=== PATIENT | male | born 1965 | race African-American/Black ===

== ENCOUNTER 2023-06-09 12:06 | Inpatient (IN) | payer OTHER ==
[2023-06-09 12:54] VITALS: BMI 27.9
[2023-06-09] MEDS ORDERED: hydrOXYzine PAMOATE 25 MG CAPSULE (FP) PO PRN (14:01)
[2023-06-09] MEDS ORDERED: NALOXONE HCL (KLOXXADO) 8 MG SPRAY NS PRN (14:01)
[2023-06-09] MEDS ORDERED: MAGNESIUM HYDROX 2400MG/30ML ORAL SUSPENSION 30 ML CUP PO PRN (14:01)
[2023-06-09] MEDS ORDERED: guaiFENesin 600 MG TABLET.ER (FP) PO PRN (14:01)
[2023-06-09] MEDS ORDERED: NALOXONE HCL 0.4 MG/ML VIAL IM PRN (14:01)
[2023-06-09] MEDS ORDERED: BENZONATATE 200 MG CAPSULE PO PRN (14:01)
[2023-06-09] MEDS ORDERED: P-EPHED 60MG/TRIPROLIDI 2.5MG TABLET PO PRN (14:01)
[2023-06-09] MEDS ORDERED: BENZOCAINE/MENTHOL (CHLORASEPTIC ) LOZENGE MM PRN (14:01)
[2023-06-09] MEDS ORDERED: POLYETHYLENE GLYCOL (HEALTHYLAX) 3350 17 GM PACKET PO PRN (14:01)
[2023-06-09] MEDS ORDERED: NICOTINE POLACRILEX 2 MG GUM BUC PRN (14:01)
[2023-06-09] MEDS ORDERED: LOPERAMIDE HCL 2 MG CAPSULE PO PRN (14:01)
[2023-06-09] MEDS: MELATONIN 5 MG TABLETS PO SCH (21:56)
[2023-06-09] MEDS: THIAMINE HCL 100 MG TABLET (FP) PO SCH (21:56)
[2023-06-10 02:40] LABS: PH,URINE 5.5 (5.0-8.0); URINE APPEARANCE CLEAR; URINE BILIRUBIN NEGATIVE (NEGATIVE); URINE COLOR YELLOW; URINE GLUCOSE (UA) NEGATIVE (NEGATIVE); URINE KETONE NEGATIVE (NEGATIVE); URINE LEUK ESTERASE NEGATIVE (NEGATIVE); URINE NITRITE NEGATIVE (NEGATIVE); URINE PROTEIN NEGATIVE (NEGATIVE); URINE UROBILINOGEN 0.2 mg/dL (0.2-1.0)
[2023-06-10] MEDS ORDERED: TUBERCULIN PPD 5 TU/0.1ML VIAL ID ONE (07:45)
[2023-06-10] MEDS ORDERED: TUBERCULIN PPD 5 TU/0.1ML SYRINGE (IN PATIENT USE ONLY) ID ONE (08:30)
[2023-06-10] MEDS ORDERED: methaDONE HCL 10 MG TABLET PO SCH (10:00)
[2023-06-10] MEDS ORDERED: methaDONE 40 MG, methaDONE 10 MG PO ONE (10:00)
[2023-06-10] MEDS: PRENATAL VITAMINS W/ FOLIC ACID TABLET (FP) PO SCH (10:09)
[2023-06-10 11:15] LABS: HEMOGLOBIN 12.3 GM/dL (11.7-16.9); MCH 29.1 pg (25.7-33.7); MCHC 33.2 g/dl (32.0-35.9); MEAN CELL VOLUME 87.7 fl (80-96); MEAN PLT VOLUME 8.2 fl (7.5-11.1); PLATELET COUNT 227 10^3/uL (134-434); RBC 4.22 M/mm3 (4.00-5.60); RDW 14.9 % (11.9-15.9); WHITE BLOOD COUNT 4.4 K/mm3 (4.0-10.0)
[2023-06-10 11:41] LABS: SYPHILIS W/ RPR CONF NON-REACTIVE (NONREACTIVE)
[2023-06-10 11:59] LABS: ALBUMIN 3.2 g/dl (3.4-5.0); BLOOD UREA NITROGEN 11.6 mg/dL (7-18); CALCIUM 8.5 mg/dL (8.5-10.1)
[2023-06-10 12:01] LABS: CREATININE 0.9 mg/dL (0.55-1.3)
[2023-06-10 12:04] LABS: BILIRUBIN,TOTAL 0.2 mg/dL (0.2-1)
[2023-06-10] MEDS: THIAMINE HCL 100 MG TABLET (FP) PO SCH (21:08)
[2023-06-10] MEDS: MELATONIN 5 MG TABLETS PO SCH (21:08)
[2023-06-11] MEDS: IBUPROFEN 400 MG TABLET (FP) PO PRN (00:31)
[2023-06-11] MEDS ORDERED: methaDONE HCL 10 MG TABLET PO SCH (06:00)
[2023-06-11] MEDS: methaDONE 40 MG, methaDONE 10 MG PO SCH (06:28)
[2023-06-11] MEDS: PRENATAL VITAMINS W/ FOLIC ACID TABLET (FP) PO SCH (09:37)
[2023-06-11] MEDS: IBUPROFEN 600 MG TABLET (FP) PO PRN ×2 (11:30→22:06)
[2023-06-11] MEDS: THIAMINE HCL 100 MG TABLET (FP) PO SCH (21:13)
[2023-06-11] MEDS: MELATONIN 5 MG TABLETS PO SCH (21:13)
[2023-06-12] MEDS: methaDONE 40 MG, methaDONE 10 MG PO SCH (06:21)
[2023-06-12] MEDS ORDERED: cloNIDine HCL 0.1 MG TABLET PO ONE (09:19)
[2023-06-12] MEDS: PRENATAL VITAMINS W/ FOLIC ACID TABLET (FP) PO SCH (09:59)
[2023-06-12] MEDS: ASPIRIN 81 MG CHEWABLE TABLETS PO SCH (10:00)
[2023-06-12] MEDS: MELATONIN 5 MG TABLETS PO SCH (21:15)
[2023-06-12] MEDS: THIAMINE HCL 100 MG TABLET (FP) PO SCH (21:15)
[2023-06-12] MEDS: ACETAMINOPHEN 325 MG TABLET (FP) PO PRN (22:07)
[2023-06-13] MEDS: methaDONE 40 MG, methaDONE 10 MG PO SCH (06:12)
[2023-06-13] MEDS: PRENATAL VITAMINS W/ FOLIC ACID TABLET (FP) PO SCH (09:40)
[2023-06-13] MEDS: ASPIRIN 81 MG CHEWABLE TABLETS PO SCH (09:40)
[2023-06-13] MEDS ORDERED: methaDONE HCL 10 MG TABLET PO ONE (13:00)
[2023-06-13] MEDS ORDERED: cloNIDine HCL 0.1 MG TABLET PO ONE (13:00)
[2023-06-13] MEDS: METHYL SALICYLATE/MENTHOL OINT 30 GM TUBE TP PRN (21:25)
[2023-06-13] MEDS: THIAMINE HCL 100 MG TABLET (FP) PO SCH (21:25)
[2023-06-13] MEDS: MELATONIN 5 MG TABLETS PO SCH (21:25)
[2023-06-14] MEDS ORDERED: methaDONE HCL 40 MG DISPERSABLE TABLET PO SCH (06:00)
[2023-06-14] MEDS ORDERED: methaDONE 40 MG, methaDONE 20 MG PO ONE (06:00)
[2023-06-14] MEDS: ASPIRIN 81 MG CHEWABLE TABLETS PO SCH (09:54)
[2023-06-14] MEDS: PRENATAL VITAMINS W/ FOLIC ACID TABLET (FP) PO SCH (09:54)
[2023-06-14] MEDS: AMMONIUM LACTATE 12% LOTION 225 GM BOTTLE TP PRN (11:51)
[2023-06-14] MEDS: COLLOIDAL OATMEAL 1 BAR EACH TP PRN (11:51)
[2023-06-14] MEDS: THIAMINE HCL 100 MG TABLET (FP) PO SCH (21:05)
[2023-06-14] MEDS ORDERED: SUVOREXANT 10 MG TABLET PO PRN (22:00)
[2023-06-15] MEDS ORDERED: methaDONE HCL 10 MG TABLET PO SCH (06:00)
[2023-06-15] MEDS: methaDONE 40 MG, methaDONE 30 MG PO SCH (06:07)
[2023-06-15] MEDS: PRENATAL VITAMINS W/ FOLIC ACID TABLET (FP) PO SCH (09:30)
[2023-06-15] MEDS: ASPIRIN 81 MG CHEWABLE TABLETS PO SCH (09:30)
[2023-06-15] MEDS: METHYL SALICYLATE/MENTHOL OINT 30 GM TUBE TP PRN (09:31)
[2023-06-15] MEDS: AMMONIUM LACTATE 12% LOTION 225 GM BOTTLE TP PRN (09:31)
[2023-06-15] MEDS: THIAMINE HCL 100 MG TABLET (FP) PO SCH (21:03)
[2023-06-16] MEDS: IBUPROFEN 600 MG TABLET (FP) PO PRN (00:39)
[2023-06-16] MEDS: hydrOXYzine PAMOATE 50 MG CAPSULE (FP) PO PRN (02:12)
[2023-06-16] MEDS: methaDONE 40 MG, methaDONE 30 MG PO SCH (06:27)
[2023-06-16] MEDS: PRENATAL VITAMINS W/ FOLIC ACID TABLET (FP) PO SCH (10:04)
[2023-06-16] MEDS: ASPIRIN 81 MG CHEWABLE TABLETS PO SCH (10:04)
[2023-06-16] MEDS: MAG HYDROX/AL HYDROX/SIMETH 30 ML UNIT-DOSE CUP PO PRN (16:49)
[2023-06-16] MEDS: THIAMINE HCL 100 MG TABLET (FP) PO SCH (21:35)
[2023-06-16] MEDS: SUVOREXANT 15 MG TABLET PO PRN (21:36)
[2023-06-17] MEDS: MAG HYDROX/AL HYDROX/SIMETH 30 ML UNIT-DOSE CUP PO PRN (00:15)
[2023-06-17] MEDS: methaDONE 40 MG, methaDONE 30 MG PO SCH (06:45)
[2023-06-17] MEDS: ASPIRIN 81 MG CHEWABLE TABLETS PO SCH (09:28)
[2023-06-17] MEDS: PRENATAL VITAMINS W/ FOLIC ACID TABLET (FP) PO SCH (09:29)
[2023-06-17] MEDS: METHYL SALICYLATE/MENTHOL OINT 30 GM TUBE TP PRN (12:49)
[2023-06-17] MEDS: IBUPROFEN 600 MG TABLET (FP) PO PRN (12:49)
[2023-06-17] MEDS: SUVOREXANT 15 MG TABLET PO PRN (21:25)
[2023-06-17] MEDS: THIAMINE HCL 100 MG TABLET (FP) PO SCH (21:25)
[2023-06-18] MEDS: ACETAMINOPHEN 325 MG TABLET (FP) PO PRN (03:21)
[2023-06-18] MEDS: methaDONE 40 MG, methaDONE 30 MG PO SCH (06:12)
[2023-06-18] MEDS: ASPIRIN 81 MG CHEWABLE TABLETS PO SCH (09:45)
[2023-06-18] MEDS: PRENATAL VITAMINS W/ FOLIC ACID TABLET (FP) PO SCH (09:45)
[2023-06-18] MEDS: COLLOIDAL OATMEAL 1 BAR EACH TP PRN (16:43)
[2023-06-18] MEDS: THIAMINE HCL 100 MG TABLET (FP) PO SCH (21:09)
[2023-06-18] MEDS: SUVOREXANT 15 MG TABLET PO PRN (21:11)
[2023-06-19] MEDS: IBUPROFEN 400 MG TABLET (FP) PO PRN (02:20)
[2023-06-19] MEDS: methaDONE 40 MG, methaDONE 30 MG PO SCH (05:59)
[2023-06-19] MEDS: ASPIRIN 81 MG CHEWABLE TABLETS PO SCH (09:35)
[2023-06-19] MEDS: PRENATAL VITAMINS W/ FOLIC ACID TABLET (FP) PO SCH (09:35)
[2023-06-19] MEDS: THIAMINE HCL 100 MG TABLET (FP) PO SCH (21:33)
[2023-06-19] MEDS: SUVOREXANT 15 MG TABLET PO PRN (21:35)
[2023-06-20] MEDS: methaDONE 40 MG, methaDONE 30 MG PO SCH (06:03)
[2023-06-20] MEDS: PRENATAL VITAMINS W/ FOLIC ACID TABLET (FP) PO SCH (10:03)
[2023-06-20] MEDS: ASPIRIN 81 MG CHEWABLE TABLETS PO SCH (10:03)
[2023-06-20] MEDS: IBUPROFEN 600 MG TABLET (FP) PO PRN (14:01)
[2023-06-20] MEDS: THIAMINE HCL 100 MG TABLET (FP) PO SCH (21:27)
[2023-06-20] MEDS: MIRTAZAPINE 15 MG TABLET (FP) PO SCH (21:28)
[2023-06-20] MEDS: SUVOREXANT 15 MG TABLET PO PRN (21:29)
[2023-06-21] MEDS: methaDONE 40 MG, methaDONE 30 MG PO SCH (06:07)
[2023-06-21] MEDS: ASPIRIN 81 MG CHEWABLE TABLETS PO SCH (09:43)
[2023-06-21] MEDS: PRENATAL VITAMINS W/ FOLIC ACID TABLET (FP) PO SCH (09:43)
[2023-06-21] MEDS: THIAMINE HCL 100 MG TABLET (FP) PO SCH (21:23)
[2023-06-21] MEDS: MIRTAZAPINE 15 MG TABLET (FP) PO SCH (21:23)
[2023-06-21] MEDS: SUVOREXANT 15 MG TABLET PO PRN (21:24)
[2023-06-22] MEDS: methaDONE 40 MG, methaDONE 30 MG PO SCH (06:11)
[2023-06-22] MEDS: PRENATAL VITAMINS W/ FOLIC ACID TABLET (FP) PO SCH (09:51)
[2023-06-22] MEDS: ASPIRIN 81 MG CHEWABLE TABLETS PO SCH (09:51)
[2023-06-22] MEDS: MIRTAZAPINE 15 MG TABLET (FP) PO SCH (22:33)
[2023-06-22] MEDS: THIAMINE HCL 100 MG TABLET (FP) PO SCH (22:33)
[2023-06-22] MEDS: SUVOREXANT 15 MG TABLET PO PRN (22:39)
[2023-06-23] MEDS: methaDONE 40 MG, methaDONE 30 MG PO SCH (06:03)
[2023-06-23] MEDS: PRENATAL VITAMINS W/ FOLIC ACID TABLET (FP) PO SCH (09:57)
[2023-06-23] MEDS: ASPIRIN 81 MG CHEWABLE TABLETS PO SCH (09:57)
[2023-06-23] MEDS: THIAMINE HCL 100 MG TABLET (FP) PO SCH (21:12)
[2023-06-23] MEDS: MIRTAZAPINE 15 MG TABLET (FP) PO SCH (21:12)
[2023-06-23] MEDS: SUVOREXANT 15 MG TABLET PO PRN (21:12)
[2023-06-23] MEDS: hydrOXYzine PAMOATE 50 MG CAPSULE (FP) PO PRN (21:12)
[2023-06-24] MEDS: methaDONE 40 MG, methaDONE 30 MG PO SCH (06:11)
[2023-06-24] MEDS: ASPIRIN 81 MG CHEWABLE TABLETS PO SCH (09:31)
[2023-06-24] MEDS: PRENATAL VITAMINS W/ FOLIC ACID TABLET (FP) PO SCH (09:31)
[2023-06-24] MEDS ORDERED: ONDANSETRON *ODT* 4 MG TABLET SL PRN (10:02)
[2023-06-24] MEDS ORDERED: methaDONE HCL 10 MG TABLET PO ONE (10:45)
[2023-06-24] MEDS: THIAMINE HCL 100 MG TABLET (FP) PO SCH (21:21)
[2023-06-24] MEDS: MIRTAZAPINE 15 MG TABLET (FP) PO SCH (21:21)
[2023-06-24] MEDS: SUVOREXANT 15 MG TABLET PO PRN (21:22)
[2023-06-25] MEDS: methaDONE HCL 40 MG DISPERSABLE TABLET PO SCH (06:11)
[2023-06-25] MEDS: PRENATAL VITAMINS W/ FOLIC ACID TABLET (FP) PO SCH (09:45)
[2023-06-25] MEDS: ASPIRIN 81 MG CHEWABLE TABLETS PO SCH (09:45)
[2023-06-25] MEDS ORDERED: LIDOCAINE 5% TOPICAL PATCH TP PRN (12:02)
[2023-06-25] MEDS: LIDOCAINE PATCH REMOVAL MC SCH (21:06)
[2023-06-25] MEDS: hydrOXYzine PAMOATE 50 MG CAPSULE (FP) PO PRN (21:06)
[2023-06-25] MEDS: THIAMINE HCL 100 MG TABLET (FP) PO SCH (21:06)
[2023-06-25] MEDS: MIRTAZAPINE 15 MG TABLET (FP) PO SCH (21:06)
[2023-06-26] MEDS: methaDONE HCL 40 MG DISPERSABLE TABLET PO SCH (06:09)
[2023-06-26] MEDS: PRENATAL VITAMINS W/ FOLIC ACID TABLET (FP) PO SCH (10:10)
[2023-06-26] MEDS: ASPIRIN 81 MG CHEWABLE TABLETS PO SCH (10:10)
[2023-06-26] MEDS: THIAMINE HCL 100 MG TABLET (FP) PO SCH (21:10)
[2023-06-26] MEDS: hydrOXYzine PAMOATE 50 MG CAPSULE (FP) PO PRN (21:10)
[2023-06-26] MEDS: MIRTAZAPINE 15 MG TABLET (FP) PO SCH (21:10)
[2023-06-26] MEDS: LIDOCAINE PATCH REMOVAL MC SCH (22:05)
[2023-06-27] MEDS: methaDONE HCL 40 MG DISPERSABLE TABLET PO SCH (06:06)
[2023-06-27 07:19] VITALS: BP 143/92; PULSE 83; RESP 17; TEMP 96.9
[2023-06-27] MEDS: PRENATAL VITAMINS W/ FOLIC ACID TABLET (FP) PO SCH (09:22)
[2023-06-27] MEDS: ASPIRIN 81 MG CHEWABLE TABLETS PO SCH (09:22)
== END 2023-06-27 09:50 | disposition home or self-care (01) | DRG 772 ==
LOC: YASAS 12:06 → Y3E 16:21
PROVIDERS: ADMIT Allergy & Immunology; ATTEND Psychiatry & Neurology Pain Medicine
PROC: HZ42ZZZ Group Counseling for Substance Abuse Treatment, Cognitive-Behavioral (ICD-10-PCS; principal; 2023-06-09)
DX: F11.20 Opioid dependence, uncomplicated (principal); F10.10 Alcohol abuse, uncomplicated; F17.210 Nicotine dependence, cigarettes, uncomplicated; F19.282 Other psychoactive substance dependence with psychoactive substance-induced sleep disorder; K21.9 Gastro-esophageal reflux disease without esophagitis; M25.561 Pain in right knee; Z99.89 Dependence on other enabling machines and devices; Z28.310 Unvaccinated for COVID-19; Z28.9 Immunization not carried out for unspecified reason; Z59.00 Homelessness unspecified
CPT/HCPCS: 36415; 80053; 81003; 82962; 83036; 85027; 86780; 86803; 87635

== ENCOUNTER 2025-06-30 12:40 | Inpatient (IN) | payer OTHER ==
[2025-06-30 13:38] VITALS: BMI 29.8
[2025-06-30] MEDS ORDERED: BENZOCAINE/MENTHOL (CHLORASEPTIC ) LOZENGE MM PRN (14:01)
[2025-06-30] MEDS ORDERED: IBUPROFEN 400 MG TABLET (FP) PO PRN (14:01)
[2025-06-30] MEDS ORDERED: POLYETHYLENE GLYCOL (HEALTHYLAX) 3350 17 GM PACKET PO PRN (14:01)
[2025-06-30] MEDS ORDERED: NALOXONE (NARCAN) HCL 4 MG/0.1 ML SPRAY NS PRN (14:01)
[2025-06-30] MEDS ORDERED: LOPERAMIDE HCL 2 MG CAPSULE PO PRN (14:01)
[2025-06-30] MEDS ORDERED: P-EPHED 60MG/TRIPROLIDI 2.5MG TABLET PO PRN (14:01)
[2025-06-30] MEDS ORDERED: ACETAMINOPHEN 325 MG TABLET (FP) PO PRN (14:01)
[2025-06-30] MEDS ORDERED: NICOTINE POLACRILEX 2 MG LOZENGE BC PRN (14:01)
[2025-06-30] MEDS ORDERED: MAG HYDROX/AL HYDROX/SIMETH 30 ML UNIT-DOSE CUP PO PRN (14:01)
[2025-06-30] MEDS ORDERED: MAGNESIUM HYDROX 2400MG/30ML ORAL SUSPENSION 30 ML CUP PO PRN (14:01)
[2025-06-30] MEDS ORDERED: NICOTINE POLACRILEX 2 MG GUM BUC PRN (14:01)
[2025-06-30] MEDS ORDERED: DICYCLOMINE HCL 10 MG CAPSULE PO PRN (14:01)
[2025-06-30] MEDS ORDERED: guaiFENesin 600 MG TABLET.ER (FP) PO PRN (14:01)
[2025-06-30] MEDS ORDERED: BENZONATATE 200 MG CAPSULE PO PRN (14:01)
[2025-06-30] MEDS ORDERED: BISMUTH SUBSALICYLATE 524 MG/30 ML PO PRN (14:01)
[2025-06-30] MEDS ORDERED: ONDANSETRON *ODT* 4 MG TABLET ONE (15:31)
[2025-06-30] MEDS: ONDANSETRON *ODT* 4 MG TABLET SL PRN (15:33)
[2025-06-30] MEDS ORDERED: TRIMETHOBENZAMIDE HCL 200MG/2ML INJ IM ONE (16:00)
[2025-06-30] MEDS: TRIMETHOBENZAMIDE HCL 200MG/2ML INJ IM ONE (18:21)
[2025-06-30] MEDS: IBUPROFEN 600 MG TABLET (FP) PO PRN (18:24)
[2025-06-30] MEDS: THIAMINE 100 MG TABLET PO SCH (22:07)
[2025-06-30] MEDS: MELATONIN 5 MG TABLETS PO SCH (22:07)
[2025-07-01] MEDS: PRENATAL VITAMINS W/ FOLIC ACID TABLET (FP) PO SCH (09:51)
[2025-07-01] MEDS: TRIMETHOBENZAMIDE HCL 200MG/2ML INJ IM PRN (10:37)
[2025-07-01 11:34] LABS: MCHC 32.8 g/dl (32.3-36.5); MEAN CELL VOLUME 87.0 fl (79.0-92.2); MEAN PLT VOLUME 10.4 fl (9.4-12.4); RDW 13.5 % (12.2-16.1)
[2025-07-01 13:04] LABS: GLUCOSE,RANDOM 125 mg/dL (74-106); TOT PROT 7.6 g/dl (6.4-8.2)
[2025-07-01 13:05] LABS: CO2 26 mmol/L (21-32)
[2025-07-01 13:07] LABS: ALK PHOS 102 U/L (40-150)
[2025-07-01 13:10] LABS: CREATININE 1.01 mg/dL (0.55-1.3); SGOT/AST 28 U/L (5-34); SGPT/ALT 36 U/L (0-55)
[2025-07-01] MEDS: QUEtiapine FUMARATE 100 MG TABLET (FP) PO SCH (22:20)
[2025-07-02] MEDS: POTASSIUM CHLORIDE ORAL LIQUID 20 MEQ/15 ML PO ONE (14:41)
[2025-07-03 11:11] LABS: GLUCOSE,RANDOM 106.0 mg/dL (74-106); TOT PROT 6.0 g/dl (6.4-8.2)
[2025-07-03 11:12] LABS: CO2 27.0 mmol/L (21-32)
[2025-07-03 11:14] LABS: ALK PHOS 99.0 U/L (40-150)
[2025-07-03 11:17] LABS: CREATININE 0.93 mg/dL (0.55-1.3); SGOT/AST 29.0 U/L (5-34); SGPT/ALT 50.0 U/L (0-55)
[2025-07-03] MEDS: MAGNESIUM OXIDE 400 MG TABLET (FP) PO SCH (12:37)
[2025-07-03] MEDS: POTASSIUM CHLORIDE ORAL LIQUID 20 MEQ/15 ML PO ONE (12:37)
[2025-07-05 09:02] VITALS: BP 116/79; PULSE 77; RESP 17; TEMP 96.4
[2025-07-05 11:39] LABS: GLUCOSE,RANDOM 134.0 mg/dL (74-106)
[2025-07-05 11:41] LABS: CO2 28.0 mmol/L (21-32)
[2025-07-05 11:45] LABS: CREATININE 0.86 mg/dL (0.55-1.3)
== END 2025-07-05 10:32 | disposition home or self-care (01) | DRG 773 ==
LOC: YASAS 12:40 → Y3N 15:51
PROVIDERS: ADMIT Neuromusculoskeletal Medicine & OMM; ATTEND Counselor Addiction (Substance Use Disorder)
PROC: HZ2ZZZZ Detoxification Services for Substance Abuse Treatment (ICD-10-PCS; principal; 2025-06-30)
DX: F11.23 Opioid dependence with withdrawal (principal); F17.210 Nicotine dependence, cigarettes, uncomplicated; F31.9 Bipolar disorder, unspecified; E87.6 Hypokalemia
CPT/HCPCS: 36415; 80048; 80053; 80305; 80307; 83735; 85027; 86780; 93005; 93010; Q0162